=== PATIENT | female | born 1950 | race Caucasian/White ===

== ENCOUNTER 2024-01-02 11:33 | Outpatient (AMB) | payer MEDICARE, MEDICAID, SELFPAY ==
--- NOTE | 2024-01-02 12:00 | A.OFFPC_ITS ---
Vital Signs 01/02/24 12:07 Weight 130 lb BP 100/52 L Blood Pressure Location Rt brachial Position Sitting Respiration 12 Pulse 63 Pulse Source Pulse Oximeter Temp 98.3 F Temp Source Oral Pulse Oximetry (%) 99 Oxygen Delivery Method Room Air Intake Visit Reasons: est care/forgetfulness Intake Note: New patient visit. Community Development Worker Required: Yes Community Development Worker Name: son Allergies No Known Allergies Allergy (Verified 01/02/24 12:02) Tobacco use date assessed: 01/02/24 Fall risk assessment: No Falls in past year Last assessed Fall Risk: 01/02/24 Dental Screening Dental Screen Date: 01/02/24 Did you have a dental visit in the last 12 months?: No Did you have a dental problem in the last 6 months where you did not have access to dental care?: No Was dental information given to patient?: Patient declined (waiting on doctors approval ) HPI HPI Comments History of Present Illness Details This is a 73-year-old female with no significant past medical history presenting to [facility]. She is with her son, Antonio. 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 Antonio interprets. Patient is from [place]. She moved within the past year to [place] where she resided for 4 months. Three months ago she relocated to [place], and she is living with her son and [id number]. There are no prior medical records available. They are working on obtaining the records. Her son tells me that about 3 years ago she was diagnosed with right breast cancer. He says they removed the cancer surgically and put her on a medication, but they subsequently found out that she did not ever have cancer though the details of this are unclear to me. She stopped taking the oral medication about 2 years ago. They do not remember the name of it. They said that the doctor lost his practice and his home and is no longer practicing medicine. She denies breast lumps or pain. Denies family history of breast cancer. Her last mammogram was more than a year ago, and she is agreeable to have this test done. She endorses bilateral knee pain for years. No injury. No swelling. They do not give out on her. It hurts when she is sitting for long period of time and gets up and starts walking. Knees feel stiff sometimes. She does not take medication for this. She endorses urinary frequency. No dysuria, hematuria or incontinence. One of her siblings has type 2 diabetes. She attributes it to her age. She gets up once at night. Patient reports he had a colonoscopy 4 years ago which was normal. They deny family history of colon cancer. Patient says she had high cholesterol in the past, but she has never taken medication for it. One of her sisters had a stroke. Patient denies history of heart attack or stroke. She is a nonsmoker. Her son endorses about 6 months of short term memory losses. He gives several examples. Sometimes when he is eating a meal next to her and finishes he gets up, and she will ask him if he needs to eat even though he just did. She will ask him for the remote, and he will hand it to her, but then she will forget she has it. Sometimes when he tells her he is leaving the house she tries looking for him after he has gone. She does remember details from long ago. She does not drive. Patient says she has not really appreciated the change in her memory. She denies headaches, vision changes, numbness, tingling, weakness, syncope, dizziness or head injuries. There is no known family history of dementia. She denies depression symptoms. PHQ-9 is negative. MMSE score is 21. ROS: Constitutional: No unexplained weight loss, fever, chills, fatigue or night sweats. Eyes: No vision changes, blurry vision, double vision, eye pain, eye redness, eye discharge. ENT: No hearing loss, sneezing, congestion, runny nose or sore throat. Respiratory: No shortness of breath, cough or sputum production. Cardiovascular: No chest pain, chest pressure or chest discomfort. No palpitations or pedal edema. Gastrointestinal: No anorexia, nausea, vomiting or diarrhea. No abdominal pain or blood in stool. Hematologic/Lymphatics: No bleeding or bruising. Skin: No rash or itching. Endocrine: No cold or heat intolerance. No polydipsia. Psychiatric: No depression or anxiety. No SI/HI. Physical exam: Constitutional: Alert, in no distress. Head: Normocephalic. Eyes: Pupils are equal, round and reactive to light. Extraocular muscles intact. Ear, Nose and Throat: Canals clear. TMs normal. Normal nasal mucosa. No nasal discharge. No oral lesions. Neck: Supple, Full range of motion. No lymphadenopathy. No palpable thyroid masses. Respiratory: Clear to auscultation. Cardiovascular: S1 S2 regular. No murmurs. Gastrointestinal: Abdomen soft, non-tender, non-distended. Normal bowel sounds. Genitourinary: No costovertebral angle tenderness. Neurologic:?Alert and oriented x 3, no focal deficits observed, CN 2-12 intact, [id number] normal, sensation equal and symmetric, strength UE and LE 5/5 bilaterally, reflexes equal and symmetric.? Normal gait.? Patient able to heel walk, toe walk and walk heel-to-toe across the floor.? No pronator drift.? Negative Romberg. Skin: No rashes Musculoskeletal: Bilateral knee crepitus, knees nontender, no swelling Extremities: Warm and well perfused. No clubbing, cyanosis or edema. Psychiatric: Normal mood and affect [facility] Medical History (Updated 01/02/24 @ 13:33 by RICO Severino) Urinary frequency Abnormal mammogram of right breast Bilateral knee pain Memory loss Surgical History (Updated 01/02/24 @ 12:23 by RICO Severino) History of tubal ligation Family History (Updated 01/02/24 @ 13:29 by RICO Severino) Brother Cancer Brother Cancer Sister Stroke Diabetes Social History Housing: House Housing Other:: With son and his e-Cigarette/Vaping Use: Never Used Second Hand Smoke Exposure: No service: No Current occupational status: retired Cognitive needs: No Hearing needs: No Vision needs: Yes Questionnaire PHQ-9 Over the last 2 weeks, how often have you been bothered by any of the following problems? 1. Little interest or pleasure in doing things: not at all 2. Feeling down, depressed, or hopeless: not at all 3. Trouble falling or staying asleep, or sleeping too much: not at all 4. Feeling tired or having little energy: not at all 5. Poor appetite or overeating: not at all 6. Feeling bad about yourself - or that you are a failure or have let yourself or your family down: not at all 7. Trouble concentrating on things, such as reading the newspaper or watching television: not at all 8. Moving or speaking so slowly that other people could have noticed. Or the opposite - being so fidgety or restless that you have been moving around a lot more than usual: not at all 9. Thoughts that you would be better off or of hurting yourself in some way: not at all Total score: 0 Source: Developed by Drs. Willie An, Sary Mahmood, Sloan Babin and colleagues, with an educational ruddy from [employer]. Thrive Questionnaire Date Thrive assessed: 12/20/23 I am a: Parent/Caregiver What is your living situation today?: I have a steady place to live Within the past 12 months, did the food you bought not last and you didn't have the money to get more?: Never true Within the past 12 months, did you worry whether your food would run out before you got money to buy more?: Never true Do you have trouble paying for medicines?: No Do you have trouble getting transportation to medical appointments?: No Do you have trouble paying your heating and electricity bill?: No Do you have trouble taking care of your child, family member or friend?: No Do you have trouble with day-to-day activities such as bathing, preparing meals, shopping, managing finances, etc.?: Yes Are you currently unemployed and looking for a job?: I choose not to answer this question Are you interested in more education?: No Please select the resources that you would like help with: None Currently or been in a relationship where the following occur: No concerns reported THRIVE Score: 0 Physical exam (Primary Care) Vital Signs: Last Vital Signs Temp 98.3 F 01/02/24 12:07 Pulse 63 01/02/24 12:07 Resp 12 01/02/24 12:07 BP 100/52 L 01/02/24 12:07 Pulse Ox 99 01/02/24 12:07 Oxygen Delivery Method Room Air 01/02/24 12:07 Tobacco/Smoking Status: Tobacco use Status Tobacco use date assessed 01/02/24 01/02/24 12:09 e-Cigarette/Vaping Use Never Used 01/02/24 12:09 Thrive Assessment: Date of Thrive Assessment Date Thrive assessed 12/20/23 01/02/24 12:09 Currently or been in a relationship where the following occur: No concerns reported Coding Level of Care Code New Pt Level 4 (98118) Complex EM visit Add On G2211 Diagnoses Memory loss R41.3 Urinary frequency R35.0 Chronic pain of both knees M25.561; M25.562; G89.29 Chronicity: chronic Abnormal mammogram of right breast R92.8 Comment Assessment & Plan Assessment & Plan (1) Memory loss: Code(s): R41.3 - Other amnesia Category: Medical Plan: Differential reviewed with the patient and her son. Check screening labs, urine culture, MRI of the brain. Refer to neuropsychiatry. (2) Urinary frequency: Code(s): R35.0 - Frequency of micturition Category: Medical Plan: Chronic. Check UA, culture, A1c. (3) Bilateral knee pain: Code(s): M25.561 - Pain in right knee; M25.562 - Pain in left knee Category: Medical Qualifiers: Chronicity: chronic Qualified Code(s): M25.561 - Pain in right knee; M25.562 - Pain in left knee; G89.29 - Other chronic pain Plan: X-rays ordered. (4) Abnormal mammogram of right breast: Code(s): R92.8 - Other abnormal and inconclusive findings on diagnostic imaging of breast Category: Medical Plan: I explained the importance of getting the medical records from [place] so that I can look into the details of this misdiagnosis of breast cancer. He will also get me the name of the medication she was prescribed. Patient will have a mammogram and bone density test. Plan Follow up in 6 weeks. Orders: Orders XR knee RT 3V Today M25.561 - Pain in right knee, M25.562 - Pain in left knee MM screening mammo BI Today Z12.31 - Encounter for screening mammogram for malignant neoplasm of breast XR DEXA axial skeleton Today N95.9 - Unspecified menopausal and perimenopausal disorder TSH reflex Free T4 Today M25.561 - Pain in right knee, M25.562 - Pain in left knee, R41.3 - Other amnesia, Z98.51 - Tubal ligation status Hemoglobin A1c Today R35.0 - Frequency of micturition, R41.3 - Other amnesia Lipid Panel Today E78.5 - Hyperlipidemia, unspecified, M25.561 - Pain in right knee, M25.562 - Pain in left knee, R41.3 - Other amnesia, Z98.51 - Tubal ligation status Vitamin B12 and Folate Today M25.561 - Pain in right knee, M25.562 - Pain in left knee, R41.3 - Other amnesia, Z98.51 - Tubal ligation status XR knee LT 3V Today M25.561 - Pain in right knee, M25.562 - Pain in left knee MR head/brain wo con Today R41.3 - Other amnesia Syphilis Screen Today M25.561 - Pain in right knee, M25.562 - Pain in left knee, R41.3 - Other amnesia, Z20.2 - Contact with and (suspected) exposure to infections with a predominantly sexual mode of transmission, Z98.51 - Tubal ligation status UA w Microscopic Today M25.561 - Pain in right knee, M25.562 - Pain in left knee, R39.9 - Unspecified symptoms and signs involving the genitourinary system, R41.3 - Other amnesia, Z98.51 - Tubal ligation status Urine Culture Today M25.561 - Pain in right knee, M25.562 - Pain in left knee, R39.9 - Unspecified symptoms and signs involving the genitourinary system, R41.3 - Other amnesia, Z98.51 - Tubal ligation status Complete Blood Count Auto Diff Today M25.561 - Pain in right knee, M25.562 - Pain in left knee, R41.3 - Other amnesia, Z98.51 - Tubal ligation status Comprehensive Met. Panel Today M25.561 - Pain in right knee, M25.562 - Pain in left knee, R41.3 - Other amnesia, Z98.51 - Tubal ligation status Referrals Neuropsychiatry Referral M25.561 - Pain in right knee, M25.562 - Pain in left knee, R41.3 - Other amnesia, R92.8 - Other abnormal and inconclusive findings on diagnostic imaging of breast
[2024-01-02 12:07] VITALS: BP 100/52; PULSE 63; RESP 12; TEMP 36.8; O2SAT 99
== END 2024-01-02 12:52 | disposition home or self-care (01) ==
PROVIDERS: PCP Internal Medicine; Visit Provider Physician Assistant Medical
DX: R41.3 Other amnesia (principal); R35.0 Frequency of micturition; M25.561 Pain in right knee; M25.562 Pain in left knee; G89.29 Other chronic pain; R92.8 Other abnormal and inconclusive findings on diagnostic imaging of breast

== ENCOUNTER → 2024-01-02 11:33 | Outpatient (BNVA) | payer MEDICARE, MEDICAID, SELFPAY | PROVIDERS: PCP Internal Medicine; Visit Provider Physician Assistant Medical | DX: R41.3 Other amnesia (principal); R35.0 Frequency of micturition; M25.561 Pain in right knee; M25.562 Pain in left knee; G89.29 Other chronic pain; R92.8 Other abnormal and inconclusive findings on diagnostic imaging of breast | CPT/HCPCS: 99202 ==

== ENCOUNTER 2024-01-03 09:23 | Outpatient (REF) | payer MEDICARE, MEDICAID, SELFPAY ==
[2024-01-03 10:02] LABS: MANUAL DIFF FLAG NO
[2024-01-03 10:53] LABS: Basophils Percent Auto 0.4 % (0-2); Eosinophils Percent Auto 0.8 % (0-4); Hematocrit 40.6 % (37.0-47.0); Hemoglobin 13.6 g/dl (12.0-16.0); Imm Gran Abs Auto 0.02 X10*3/uL (0.00-0.03); Imm Gran Pct Auto 0.4 % (0.0-0.4); Lymphocytes Percent Auto 37.9 % (20-40); Mean Corpuscular HGB Conc 33.5 g/dl (31.0-35.0); Mean Corpuscular Hemoglobin 30.8 pg (27.0-33.0); Mean Corpuscular Volume 91.9 fL (80.0-98.0); Mean Platelet Volume 10.8 fL (9.4-12.3); Monocytes Absolute Auto 0.4 X10*3/uL (0.1-1.2); Monocytes Percent Auto 7.7 % (2-11); Neutrophils Absolute Auto 2.8 x10*3/uL (2.0-8.3); Neutrophils Percent Auto 52.8 % (45-73); Platelet Count 240 X10*3/uL (160-400); Red Blood Count 4.42 X10*6/uL (4.20-5.50); Red Cell Distribution Width 12.8 % (11.0-16.0); White Blood Count 5.3 X10*3/uL (4.8-10.8)
[2024-01-03 11:06] LABS: Appearance Urine Clear; Color Urine Yellow; Glucose Urine UA Negative (Negative); Leukocyte Esterase Urine Negative (Negative); Nitrite Urine Negative (Negative); PH 5.5 (5.0-9.0); Specific Gravity - Urine >= 1.030 (1.005-1.025); UMIC TRIGGER UA YES; Urine Blood Trace (Negative); Urine Ketones Negative (Negative); Urine Protein Negative (Neg-Trace)
[2024-01-03 11:23] LABS: Alanine Aminotransferase 14 U/L (0-31); Albumin Level 4.1 g/dL (3.5-5.0); Alkaline Phosphatase 85 U/L (39-117); Anion Gap 14 (12-20); Aspartate Amino Transferase 19 U/L (5-31); Bilirubin Total 0.7 mg/dL (0.0-1.0); Blood Urea Nitrogen 17 mg/dL (9-16); Calcium 9.2 mg/dL (8.4-10.2); Carbon Dioxide 27 mmol/L (22-29); Chloride 104 mmol/L (96-108); Cholesterol 305 mg/dL (<200); Estimated Glomerular Filt Rate > 60; Glucose Random 93 mg/dL (60-115); HDL Cholesterol 53 mg/dL (>40); LDL Cholesterol Calculated 219 mg/dL (<100); Potassium 4.2 mmol/L (3.3-5.1); Sodium 141 mmol/L (135-145); Triglycerides 166 mg/dL (<150)
[2024-01-03 11:24] LABS: Bacteria Urine Trace (None Seen); RBC Urine 0-2 /HPF (0-2); WBC Urine 0-5 /HPF (0-5)
[2024-01-03 11:25] LABS: Hyaline Casts Urine 0-2 /LPF (0-2)
[2024-01-03 11:39] LABS: TSH reflex Free T4 1.74 uIU/mL (0.32-4.0)
[2024-01-03 12:17] LABS: Folate 13.3 ng/mL (> or = 4.0); Vitamin B12 325 pg/mL (200-900)
[2024-01-03 12:31] LABS: Estimated Average Glucose 114 mg/dL; Hemoglobin A1C 203.8222 umol/L; Hemoglobin A1c % 5.6 % (<6.0)
[2024-01-05 03:50] LABS: Syphilis Screen Nonreactive (Nonreactive)
== END 2024-01-03 09:24 | disposition home or self-care (01) ==
LOC: HO.XRAY 09:23
PROVIDERS: PCP Internal Medicine; Visit Provider Physician Assistant Medical
DX: M25.561 Pain in right knee (principal); M25.562 Pain in left knee; R41.3 Other amnesia; R35.0 Frequency of micturition; E78.5 Hyperlipidemia, unspecified; Z98.51 Tubal ligation status; Z20.2 Contact with and (suspected) exposure to infections with a predominantly sexual mode of transmission; R39.9 Unspecified symptoms and signs involving the genitourinary system; Z13.1 Encounter for screening for diabetes mellitus
CPT/HCPCS: 36415; 80053; 80061; 81001; 82607; 82746; 83036; 84443; 85025; 86780; 87086

== ENCOUNTER 2024-02-12 13:54 | Outpatient (REF) | payer MEDICARE, MEDICAID, SELFPAY ==
--- NOTE | ~2024-02-12 | MM_ITS ---
EXAMINATION: BONE DENSITOMETRY CLINICAL INDICATION: Unspecified menopausal and perimenopausal disorder. COMPARISON: This is the patient's baseline examination. TECHNIQUE: Using a Drink[employer]iser DXA System (software version: 13.1) manufactured by [employer], dual-energy x-ray absorptiometry was performed of the lumbar spine and left hip. The images are of good technical quality. Summary results are attached. FINDINGS: AP SPINE L1-L4: BMD 1.135 g/cm2, Z-score 1.5, T-score -0.4, normal. LEFT FEMUR, NECK: BMD 0.916 g/cm2, Z-score 1.1, T-score -0.9, normal. LEFT FEMUR, TOTAL: BMD 0.907 g/cm2, Z-score 1.0, T-score -0.8, normal. IDENTIFIED RISK FACTORS: Menopause. HISTORY OF FRACTURE: None listed. MEDICATIONS: None listed. MM/XR DEXA axial skeleton IMPRESSION: 1. DIAGNOSIS: Normal bone density based on the lowest T-score value of -0.9 in the femoral neck applying World Health Organization criteria. 2. 10-YEAR FRACTURE RISK PREDICTION, FRAX: According to the guidelines, FRAX calculation should only be performed on patients in the osteopenia bone density category. Therefore, FRAX was not performed on this patient. 3. Treatment Recommendations: NOF guidelines recommend consideration for treatment in postmenopausal women and men age 50 and older presenting with the following: -A hip or vertebral (clinical or morphometric) fracture. -T-score less than or equal to -2.5 at the femoral neck or spine after appropriate evaluation to exclude secondary causes. -Low bone mass at the hip or spine and a 10-year fracture probability by FRAX of greater than or equal to 3% for hip fracture or greater than or equal to 20% for major osteoporotic fracture based on the [place] adapted WHO algorithm. 4. Other Recommendations: All treatment decisions require clinical judgment and consideration of individual patient factors, including patient preferences, comorbidities, previous drug use, risk factors not captured in the FRAX model (e.g. frailty, falls, vitamin D deficiency, increased bone turnover, interval significant decline in bone density) and possible under or overestimation of fracture risk by FRAX. FUTURE SCAN RECOMMENDATION: People with diagnosed cases of osteoporosis or at high risk for fracture should have regular bone mineral density tests. For patients eligible for Medicare, routine testing is allowed once every 2 years. The testing frequency can be increased to one year for patients who have rapidly progressing disease, those who are receiving or discontinuing medical therapy to restore bone mass, or have additional risk factors. Electronically signed by: Sharifa Martinez MD 02/20/2024 08:58 AM LEÓN MURILLO
--- NOTE | ~2024-02-12 | MM_ITS ---
EXAMINATION: MM SCREENING DIGITAL BREAST TOMOSYNTHESIS, BILATERAL CLINICAL INFORMATION: Screening. Asymptomatic. COMPARISON: Mammography: Comparison is made with available priors TECHNIQUE: Digital breast mammography with tomosynthesis is performed in both the craniocaudal and mediolateral oblique views along with computer-aided detection (CAD). FINDINGS: There are scattered areas of fibroglandular density (ACR BI-RADS breast composition Category b). Post surgical changes in the upper outer right breast. There are no significant masses, abnormal calcifications, or other abnormalities. MM/MM tomosynthesis screening BI IMPRESSION: No mammographic evidence of malignancy. ASSESSMENT: BI-RADS BI-RADS 2 - Benign Findings RECOMMENDATION: Routine annual mammography screening. 1 year F/U This examination should not preclude the clinical evaluation of a suspicious palpable abnormality. This patient's information was entered into a reminder system with a target due date for their next mammogram. Electronically signed by: Ginny Yañez DO 02/21/2024 10:12 AM LEÓN
== END 2024-02-12 13:55 | disposition home or self-care (01) ==
LOC: HO.MAMMO 13:54
PROVIDERS: PCP Physician Assistant Medical; Visit Provider Physician Assistant Medical
DX: Z12.31 Encounter for screening mammogram for malignant neoplasm of breast (principal); Z13.820 Encounter for screening for osteoporosis; Z78.0 Asymptomatic menopausal state
CPT/HCPCS: 77063; 77067; 77080

== ENCOUNTER → 2024-02-12 14:15 | Outpatient (BNV) | payer MEDICARE, MEDICAID, SELFPAY | PROVIDERS: PCP Physician Assistant Medical; Visit Provider Internal Medicine | DX: Z12.31 Encounter for screening mammogram for malignant neoplasm of breast (principal) | CPT/HCPCS: 77063; 77067 ==

== ENCOUNTER 2024-02-20 14:18 | Outpatient (AMB) | payer MEDICARE, MEDICAID, SELFPAY ==
--- NOTE | 2024-02-20 14:21 | A.OFFPC_ITS ---
Vital Signs 02/20/24 14:24 Height 5 ft 2 in Weight 124 lb BMI 22.7 BP 131/62 Blood Pressure Location Lt brachial Position Sitting Respiration 13 Pulse 68 Pulse Source Pulse Oximeter Temp 97.0 F Temp Source Skin Pulse Oximetry (%) 98 Oxygen Delivery Method Room Air Intake Visit Reasons: 30 minutes complex multiple issues Intake Note: follow up on multiole issues Back Seam Stitcher Required: No Allergies No Known Allergies Allergy (Verified 02/20/24 14:23) Tobacco use date assessed: 01/02/24 Dental Screening Dental Screen Date: 01/02/24 HPI HPI Comments History of Present Illness Details This is a 73-year-old female with a past medical history of microhematuria, hypercholesterolemia, bilateral knee pain and memory loss presenting for follow up. She is accompanied by her son Antonio who interprets. 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 Hyperlipidemia-she started atorvastatin 20 mg every evening. Denies side effects. She has been eating a lot of ice cream. She is not exercising. She does not smoke. No history of CAD. Memory loss-stable since last visit. They did not hear back about the neuropsychiatric referral. She did not get the MRI done due to claustrophobia/anxiety though it was attempted. She is willing to retry with premedication. Microscopic hematuria, urinary frequency-she has an appointment coming up with Urology this month. She had her mammogram completed, but it is not resulted yet. Her bone density exam was normal. We reviewed recommended vaccines, and she is going to start by getting the influenza vaccine and pneumonia vaccine at her pharmacy. I have also recommended COVID-19 booster and RSV vaccines. ROS: Constitutional: No unexplained weight loss, fever, chills, fatigue or night sweats. Respiratory: No shortness of breath, cough or sputum production. Cardiovascular: No chest pain Gastrointestinal: No anorexia, nausea, vomiting or diarrhea. No abdominal pain Genitourinary: No dysuria, hematuria, urinary frequency. Neurologic: No headache, dizziness, syncope, unilateral weakness, ataxia, numbness or tingling in the extremities. Psychiatric: No depression or anxiety. Physical exam: Constitutional: Alert, in no distress. Head: Normocephalic. Respiratory: Clear to auscultation. Cardiovascular: S1 S2 regular. No murmurs. Extremities: Warm and well perfused. No clubbing, cyanosis or edema. Psychiatric: Normal mood and affect PFSH Medical History (Updated 01/07/24 @ 14:47 by RICO Severino) Microhematuria Pure hypercholesterolemia Urinary frequency Abnormal mammogram of right breast Bilateral knee pain Memory loss Surgical History (Updated 01/02/24 @ 12:23 by RICO Severino) History of tubal ligation Family History (Updated 01/02/24 @ 13:29 by RICO Severino) Brother Cancer Brother Cancer Sister Stroke Diabetes Social History Housing: House Housing Other:: With son and his e-Cigarette/Vaping Use: Never Used Second Hand Smoke Exposure: No service: No Current occupational status: retired Cognitive needs: No Hearing needs: No Vision needs: Yes Questionnaire PHQ-9 Over the last 2 weeks, how often have you been bothered by any of the following problems? 1. Little interest or pleasure in doing things: not at all 2. Feeling down, depressed, or hopeless: not at all 3. Trouble falling or staying asleep, or sleeping too much: not at all 4. Feeling tired or having little energy: not at all 5. Poor appetite or overeating: not at all 6. Feeling bad about yourself - or that you are a failure or have let yourself or your family down: not at all 7. Trouble concentrating on things, such as reading the newspaper or watching television: not at all 8. Moving or speaking so slowly that other people could have noticed. Or the opposite - being so fidgety or restless that you have been moving around a lot more than usual: not at all 9. Thoughts that you would be better off or of hurting yourself in some way: not at all Total score: 0 [id number] - PHQ-9 Billing: Yes Source: Developed by Drs. Willie An, Sary Mahmood, Sloan Babin and colleagues, with an educational ruddy from [employer]. Thrive Questionnaire Date Thrive assessed: 02/20/24 I am a: Parent/Caregiver What is your living situation today?: I have a steady place to live Within the past 12 months, did the food you bought not last and you didn't have the money to get more?: Never true Within the past 12 months, did you worry whether your food would run out before you got money to buy more?: Never true Do you have trouble paying for medicines?: No Do you have trouble getting transportation to medical appointments?: No Do you have trouble paying your heating and electricity bill?: No Do you have trouble taking care of your child, family member or friend?: No Do you have trouble with day-to-day activities such as bathing, preparing meals, shopping, managing finances, etc.?: Yes Are you currently unemployed and looking for a job?: I choose not to answer this question Are you interested in more education?: No Please select the resources that you would like help with: None Currently or been in a relationship where the following occur: No concerns reported THRIVE Score: 0 AUDIT C Alcohol Use Questionnaire (AUDIT-C) 2. How many drinks containing alcohol do you have on a typical day when you are drinking?: 1 or 2 Total Score: 0 Physical exam (Primary Care) Vital Signs: Last Vital Signs Temp 97.0 F 02/20/24 14:24 Pulse 68 02/20/24 14:24 Resp 13 02/20/24 14:24 BP 131/62 02/20/24 14:24 Pulse Ox 98 02/20/24 14:24 Oxygen Delivery Method Room Air 02/20/24 14:24 BMI result Body Mass Index 22.7 Tobacco/Smoking Status: Tobacco use Status Tobacco use date assessed 01/02/24 02/20/24 14:23 e-Cigarette/Vaping Use Never Used 02/20/24 14:23 PHQ-9: PHQ-9 Score PHQ-9: Total score 0 02/20/24 14:29 Thrive Assessment: Date of Thrive Assessment Date Thrive assessed 02/20/24 02/20/24 14:23 Currently or been in a relationship where the following occur: No concerns reported Coding Level of Care Code Est Pt Level 4 (05288) Complex EM visit Add On G2211 Diagnoses Memory loss R41.3 Microhematuria R31.29 Pure hypercholesterolemia E78.00 Abnormal mammogram of right breast R92.8 Additional Codes PHQ-9 - 16497 - PHQ-9 Billing: Yes ([id number]) Assessment & Plan Assessment & Plan (1) Memory loss: Code(s): R41.3 - Other amnesia Category: Medical Plan: We reviewed her lab results. MRI is pending. Sent Ativan 1 mg to take 30-60 minutes prior to MRI. Advised patient not to drive, operate heavy machinery or drink alcohol the day she takes this medication. Her son will bring her to and from MRI. I will follow up on her neuropsych referral. (2) Microhematuria: Code(s): R31.29 - Other microscopic hematuria Category: Medical Plan: Upcoming appointment with Urology. (3) Pure hypercholesterolemia: Code(s): E78.00 - Pure hypercholesterolemia, unspecified Category: Medical Plan: Continue atorvastatin 20 mg every evening. They will return in 2 weeks for fasting labs. (4) Abnormal mammogram of right breast: Code(s): R92.8 - Other abnormal and inconclusive findings on diagnostic imaging of breast Category: Medical Plan: Refer to prior office visit note. Mammogram results is pending. Plan Follow up in 3 months. Medications: New lorazepam (Ativan) Take 1 tab po 60 minutes prior to MRI. 1 mg PO ONCE 1 tab 0RF anxiety
[2024-02-20 14:24] VITALS: BP 131/62; PULSE 68; RESP 13; TEMP 36.1; O2SAT 98; BMI 22.7
== END 2024-02-20 16:49 | disposition home or self-care (01) ==
PROVIDERS: PCP Internal Medicine; Visit Provider Physician Assistant Medical
DX: R41.3 Other amnesia (principal); R31.29 Other microscopic hematuria; E78.00 Pure hypercholesterolemia, unspecified; R92.8 Other abnormal and inconclusive findings on diagnostic imaging of breast

== ENCOUNTER → 2024-02-20 14:18 | Outpatient (BNVA) | payer MEDICARE, MEDICAID, SELFPAY | PROVIDERS: PCP Internal Medicine; Visit Provider Physician Assistant Medical | DX: R41.3 Other amnesia (principal); R31.29 Other microscopic hematuria; E78.00 Pure hypercholesterolemia, unspecified; R92.8 Other abnormal and inconclusive findings on diagnostic imaging of breast; Z79.899 Other long term (current) drug therapy | CPT/HCPCS: 96127; 99212 ==

== ENCOUNTER 2024-03-05 15:19 | Outpatient (REF) | payer MEDICARE, MEDICAID, SELFPAY ==
[2024-03-05 16:16] LABS: Urine Cytology See Pathology rpt
== END 2024-03-05 15:20 | disposition home or self-care (01) ==
LOC: HO.LNP 15:19
PROVIDERS: PCP Physician Assistant Medical; Visit Provider Nurse Practitioner Family
DX: R31.29 Other microscopic hematuria (principal)
CPT/HCPCS: 81003; 88112; 99202

== ENCOUNTER 2024-03-05 15:19 | Outpatient (AMB) | payer MEDICARE, MEDICAID, SELFPAY ==
--- NOTE | 2024-03-05 15:40 | A.OFFVIS_ITS ---
Intake Visit Reasons: microscopic hematuria Intake Note: New Patient presents for initial visit for Urology Medications: Blood Thinner: Storage Manager Required: Yes Storage Manager Name: LUCIAN TERRAZAS Accompanied by: Unknown Allergies No Known Allergies Allergy (Verified 03/05/24 15:56) Medication List - Last Reconciled 03/05/24 by ISAK Hayes atorvastatin 20 mg PO BEDTIME cyanocobalamin (vitamin B-12) 500 mcg PO DAILY lorazepam (Ativan) 1 mg PO ONCE HPI Comments Details: Mily is a very pleasant 73-year-old Macedonian-speaking female patient of who was accompanied by her son at today's office visit. She has a past medical history of hypercholesteremia, bilateral knee pain, and memory loss. She presents to the office today as a new patient for microscopic hematuria. In discussion with the patient today she reports having followed up with her PCP at which time urinalysis noted microscopic hematuria and recommendations were made for urology referral for further assessment evaluation. When asked she denies any previous smoking history and or workplace chemical exposure. She does report noting urinary frequency however does not find this bothersome. She denies urinary urgency, incontinence, nocturia, hematuria, dysuria, foul smelling urine, changes to urinary stream, flank pain, fever, and or chills.She is happy with her current voiding parameters. In office urinalysis results reviewed with the patient today 1+ microscopic hematuria. We discussed at length potential causes of microscopic hematuria as well as further workup. She otherwise offers no other issues or concerns at this time. [facility] Medical History Microhematuria Pure hypercholesterolemia Urinary frequency Abnormal mammogram of right breast Bilateral knee pain Memory loss Surgical History History of tubal ligation Family History Brother Cancer Brother Cancer Sister Stroke Diabetes Social History Housing: House Housing Other:: With son and his e-Cigarette/Vaping Use: Never Used Second Hand Smoke Exposure: No service: No Current occupational status: retired Cognitive needs: No Hearing needs: No Vision needs: Yes Review of Systems Const All systems reviewed & are unremarkable except as noted in HPI and below Physical Exam Const General: cooperative, healthy appearing, comfortable, no acute distress, well developed, alert and awake Orientation/consciousness: patient oriented x3 Limitations: no limitations HEENT Head: Yes normal to inspection, Yes normocephalic and Yes atraumatic Ears: hearing grossly normal bilaterally Eyes General: appearance normal, both eyes and all related structures Neck Neck: Yes normal visual inspection and Yes trachea midline Chest Chest palpation & inspection: normal inspection of the chest Resp Effort & Inspection: normal respiratory effort and able to speak in complete sentences Cardio Rate: regular rate GI Inspection: Yes normal to inspection General: Yes no CVA tenderness Back/Spine/Pelvis Back: no CVA tenderness Skin General skin exam: no rashes or lesions noted Neuro General: patient oriented x3 Extrem General: Yes normal to inspection Psych Appearance: grossly normal and well kempt Mental Status: mental status grossly normal Speech and movement: Normal speech and movement present and Clear speech present Affect: normal affect Attitude: cooperative Thought process: Normal thought process present Thought content: Normal thought content present Insight: Fair insight present (Psych) Judgement: Fair judgement present (Psych) Results AMB Urinalysis, Automated UA Leukoctes 0 Gato/uL Last Edit by Teri Balbuena on 03/05/24 15:45 UA Nitrite Last Edit by Teri Balbuena on 03/05/24 15:45 UA Urobilinogen 0.2 mg/dL Last Edit by MatthewJZ Clothing and Cosplay Designbernadette Balbuena on 03/05/24 15:45 UA Protein 0 mg/dL Last Edit by Teri Balbuena on 03/05/24 15:45 UA pH 5.5 Last Edit by Teri Balbuena on 03/05/24 15:45 UA Blood 25 Adan/uL Last Edit by Trei Balbuena on 03/05/24 15:45 UA Specific [place] 1.030 Last Edit by Teri Balbuena on 03/05/24 15:45 UA Ketone Last Edit by Teri Balbuena on 03/05/24 15:45 UA Bilirubin 0 mg/dL Last Edit by Teri Balbuena on 03/05/24 15:45 UA Glucose 0 mg/dL Last Edit by Teri Balbuena on 03/05/24 15:45 Results Reviewed Results Reviewed: Laboratory Last Values Urine pH (Auto) 5.5 03/05/24 15:44 Specific [place] (Auto) 1.030 03/05/24 15:44 Urine Protein (Auto) 0 mg/dL 03/05/24 15:44 Glucose (UA)(Auto) 0 mg/dL 03/05/24 15:44 Urine Blood (Auto) 25 Adan/uL 03/05/24 15:44 Urine Bilirubin (Auto) 0 mg/dL 03/05/24 15:44 Urine Urobilinogen (Auto) 0.2 mg/dL 03/05/24 15:44 Leukocyte Esterase (Auto) 0 Gato/uL 03/05/24 15:44 Assessment & Plan Assessment & Plan (1) Microhematuria: Code(s): R31.29 - Other microscopic hematuria Category: Medical Plan In office urinalysis results reviewed with the patient and her son today; as noted above; will send for urine cytology. Will obtain retroperitoneal ultrasound for further assessment evaluation. We discussed at length potential causes of microscopic hematuria as well as further workup. She otherwise denies any bothersome urinary issues or concerns. She reports be happy with current voiding parameters. Follow-up in 3 months with imaging to be completed prior; or sooner with any issues, concerns, and or questions. Orders: Orders AMB Urinalysis Automated Today Z13.9 - Encounter for screening, unspecified Urine Cytology Today R31.29 - Other microscopic hematuria US retroperitoneal comp Today R31.29 - Other microscopic hematuria Patient Instructions: The patient had an opportunity to ask questions regarding the treatment plan. All questions were answered. Physical exam, labs, and imaging were discussed and reviewed in detail. As well as risks, benefits, and discussion of treatment choices. No major barriers to understanding were identified. The patient expressed understanding and agreement with the above treatment plan. The patient was made aware they should contact our office by phone for worsening of their current condition, the appearance of new symptoms, or with any questions or concerns. Compliance is encouraged with any medications and follow up testing that is ordered. It is a privilege to be allowed the opportunity to participate in? your urological care.? Again, if you have any questions or concerns If you have any questions or concerns please do not hesitate to contact me. The office is [phone]. This note is constructed using voice recognition software. While every effort has been made to ensure accuracy artificial breast fabricator errors may have been included. Yours sincerely, ISAK Hayes Coding Level of Care Code New Pt Level 3 (90591) Diagnoses Microhematuria R31.29
== END 2024-03-05 15:53 | disposition home or self-care (01) ==
PROVIDERS: PCP Physician Assistant Medical; Visit Provider Nurse Practitioner Family
DX: Z13.9 Encounter for screening, unspecified (principal); R31.29 Other microscopic hematuria
CPT/HCPCS: 99203

== ENCOUNTER 2024-03-19 09:58 | Outpatient (AMB) | payer MEDICARE, MEDICAID, SELFPAY ==
--- NOTE | 2024-03-19 10:00 | MHC.PC.OV ---
Vital Signs 03/19/24 10:03 Height 5 ft 2 in Weight 123 lb BMI 22.5 BP 104/66 Blood Pressure Location Rt brachial Position Sitting Respiration 12 Pulse 52 Pulse Source Pulse Oximeter Pulse Oximetry (%) 97 Oxygen Delivery Method Room Air Intake Visit Reasons: memory loss Intake Note: Patient complaining of havent been feeling well Rigging Foreman Required: No Allergies No Known Allergies Allergy (Verified 03/19/24 10:00) Tobacco use date assessed: 01/02/24 Dental Screening Dental Screen Date: 01/02/24 HPI HPI Comments History of Present Illness Details This is a 73-year-old female with a past medical history of microhematuria, hypercholesterolemia, bilateral knee pain and memory loss presenting for follow up. She is accompanied by her son Antonio who interprets. They declined the video interpreter for the deaf. Hyperlipidemia-she started atorvastatin 20 mg every evening. Denies side effects. Antonio said she stopped having ice cream. She is not exercising. She does not smoke. No history of CAD. Memory loss-endorses increased anxiety and agitation recently. Cognitive decline stable. They did not hear back about the neuropsychiatric referral, and I advised them it may be a wait to get scheduled, but the referral has been [facility]. She did not get the MRI done due to claustrophobia/anxiety initially though it was attempted. I prescribed premedication, and they have it scheduled this Saturday, but Antonio would like to reschedule it so that she can have an open MRI. She is sleeping and eating well. She is still able to perform ADLs like dressing herself and bathing. Patient denies depression, SI and HI. Antonio has looked into senior center activities, but she is not interested in this. She does really enjoy visiting with her aunt who lives in an elderly living community. There are a lot of Malagasy speakers there, and they have applied for an apartment for [employer]. Microscopic hematuria, urinary frequency-followed by urology. Her mammogram and bone density exams were normal. ROS: Constitutional: No unexplained weight loss, fever, chills, fatigue or night sweats. Respiratory: No shortness of breath, cough or sputum production. Cardiovascular: No chest pain Gastrointestinal: No anorexia, nausea, vomiting or diarrhea. No abdominal pain Genitourinary: No dysuria, hematuria, urinary frequency. Neurologic: No headache, dizziness, syncope, unilateral weakness, ataxia, numbness or tingling in the extremities. Psychiatric: No depression or anxiety. Physical exam: Constitutional: Alert, in no distress. Head: Normocephalic. Respiratory: Clear to auscultation. Cardiovascular: S1 S2 regular. No murmurs. Extremities: Warm and well perfused. No clubbing, cyanosis or edema. Psychiatric: Normal mood and affect [facility] Medical History (Updated 03/19/24 @ 10:30 by RICO Severino) Cognitive decline Microhematuria Pure hypercholesterolemia Urinary frequency Abnormal mammogram of right breast Bilateral knee pain Memory loss Surgical History History of tubal ligation Family History Brother Cancer Brother Cancer Sister Stroke Diabetes Social History Housing: House Housing Other:: With son and his e-Cigarette/Vaping Use: Never Used Second Hand Smoke Exposure: No service: No Current occupational status: retired Cognitive needs: No Hearing needs: No Vision needs: Yes Questionnaire PHQ-9 Over the last 2 weeks, how often have you been bothered by any of the following problems? 57106 - PHQ-9 Billing: Patient declined-do not bill Source: Developed by Drs. Willie An, Sary Mahmood, Sloan Babin and colleagues, with an educational ruddy from [employer]. Thrive Questionnaire Date Thrive assessed: 03/19/24 I am a: Patient What is your living situation today?: I have a steady place to live Within the past 12 months, did the food you bought not last and you didn't have the money to get more?: Never true Within the past 12 months, did you worry whether your food would run out before you got money to buy more?: Never true Do you have trouble paying for medicines?: I choose not to answer this question Do you have trouble getting transportation to medical appointments?: No Do you have trouble paying your heating and electricity bill?: No Do you have trouble taking care of your child, family member or friend?: No Do you have trouble with day-to-day activities such as bathing, preparing meals, shopping, managing finances, etc.?: Yes Are you currently unemployed and looking for a job?: No Are you interested in more education?: I choose not to answer this question Please select the resources that you would like help with: None Currently or been in a relationship where the following occur: I choose not to answer THRIVE Score: 0 AUDIT C Alcohol Use Questionnaire (AUDIT-C) 1. How often do you have a drink containing alcohol?: Never Total Score: 0 FILIPPO-7 AMB Questionnaire FILIPPO-7 Date FILIPPO - 7 assessed: 03/19/24 Feeling nervous, anxious, or on edge: 0 = Not at all Not being able to stop or control worryin = Not at all Worrying too much about different things: 1 = Several days Trouble relaxin = Several days Being so restless that it is hard to sit still: 0 = Not at all Becoming easily annoyed or irritable: 2 = More than half the days Feeling afraid as if something awful might happen: 1 = Several days Total FILIPPO-7 score (0-4 normal; 5-9 mild; 10-14 moderate; 15-21 severe): 5 Source: Developed by Drs. Willie An, Sary Mahmood, Sloan Babin and colleagues, with an educational ruddy from [employer]. FILIPPO-7 Assessment Billing FILIPPO-7 Assessment Tool: FILIPPO-7 Assessment 26734 Physical exam (Primary Care) Vital Signs: Last Vital Signs Pulse 52 03/19/24 10:03 Resp 12 03/19/24 10:03 BP 104/66 03/19/24 10:03 Pulse Ox 97 03/19/24 10:03 Oxygen Delivery Method Room Air 03/19/24 10:03 BMI result Body Mass Index 22.5 Tobacco/Smoking Status: Tobacco use Status Tobacco use date assessed 01/02/24 03/19/24 10:04 e-Cigarette/Vaping Use Never Used 03/19/24 10:04 Thrive Assessment: Date of Thrive Assessment Date Thrive assessed 03/19/24 03/19/24 10:04 Currently or been in a relationship where the following occur: I choose not to answer Coding Level of Care Code Est Pt Level 4 (38753) Complex EM visit Add On G2211 Diagnoses Memory loss R41.3 Microhematuria R31.29 Pure hypercholesterolemia E78.00 Additional Codes FILIPPO-7 Assessment Billing - FILIPPO-7 Assessment Tool: FILIPPO-7 Assessment 77804 ([id number]) Assessment & Plan Assessment & Plan (1) Memory loss: Code(s): R41.3 - Other amnesia Category: Medical Plan: Continue B12. We will recheck labs today owing to some increased agitation and anxiety. We will rule out UTI. They will cancel MRI appointment scheduled this week, and I will send the MRI order to [facility] for open [facility]. She has Ativan 1 mg to take 30-60 minutes prior to MRI. Advised patient not to drive, operate heavy machinery or drink alcohol the day she takes this medication. Her son will bring her to and from MRI. Patient referred to Neurology. Discuss increased stress and agitation. Recommended trial of low-dose SSRI, but she declines for the time being. Declines referral to psychologist. (2) Microhematuria: Code(s): R31.29 - Other microscopic hematuria Category: Medical Plan: Followed by urology. (3) Pure hypercholesterolemia: Code(s): E78.00 - Pure hypercholesterolemia, unspecified Category: Medical Plan: Continue atorvastatin 20 mg every evening. Orders: Orders Urine Culture 03/19/24 R39.9 - Unspecified symptoms and signs involving the genitourinary system, R41.3 - Other amnesia Basic Metabolic Panel 03/19/24 R41.3 - Other amnesia UA w Microscopic 03/19/24 R39.9 - Unspecified symptoms and signs involving the genitourinary system, R41.3 - Other amnesia Complete Blood Count no Diff 03/19/24 R41.3 - Other amnesia TSH reflex Free T4 03/19/24 R41.3 - Other amnesia Vitamin B12 03/19/24 Z91.89 - Other specified personal risk factors, not elsewhere classified Referrals Neurology Referral R41.89 - Other symptoms and signs involving cognitive functions and awareness
[2024-03-19 10:03] VITALS: BP 104/66; PULSE 52; RESP 12; O2SAT 97; BMI 22.5
== END 2024-03-19 10:37 | disposition home or self-care (01) ==
PROVIDERS: PCP Physician Assistant Medical; Visit Provider Physician Assistant Medical
DX: R41.3 Other amnesia (principal); R31.29 Other microscopic hematuria; E78.00 Pure hypercholesterolemia, unspecified

== ENCOUNTER 2024-03-19 11:11 | Outpatient (REF) | payer MEDICARE, MEDICAID, SELFPAY ==
[2024-03-19 14:13] LABS: Hematocrit 41.2 % (37.0-47.0); Hemoglobin 13.6 g/dl (12.0-16.0); Mean Corpuscular Hemoglobin 30.4 pg (27.0-33.0); Mean Platelet Volume 11.3 fL (9.4-12.3); Platelet Count 234 X10*3/uL (160-400); Red Blood Count 4.48 X10*6/uL (4.20-5.50); Red Cell Distribution Width 13.2 % (11.0-16.0); White Blood Count 4.8 X10*3/uL (4.8-10.8)
[2024-03-19 14:15] LABS: Appearance Urine Turbid; Color Urine Yellow; Glucose Urine UA Negative (Negative); Leukocyte Esterase Urine Trace (Negative); Nitrite Urine Negative (Negative); PH 5.5 (5.0-9.0); UMIC TRIGGER UA YES; Urine Blood Trace (Negative); Urine Ketones Negative (Negative); Urine Protein Negative (Neg-Trace)
[2024-03-19 14:18] LABS: Bacteria Urine None Seen (None Seen); Hyaline Casts Urine 0-2 /LPF (0-2); RBC Urine 0-2 /HPF (0-2); WBC Urine 0-5 /HPF (0-5)
[2024-03-19 14:27] LABS: Alanine Aminotransferase 11 U/L (0-31); Anion Gap 13 (12-20); Aspartate Amino Transferase 25 U/L (5-31); Blood Urea Nitrogen 18 mg/dL (9-16); Calcium 9.3 mg/dL (8.4-10.2); Carbon Dioxide 25 mmol/L (22-29); Chloride 108 mmol/L (96-108); Cholesterol 285 mg/dL (<200); Estimated Glomerular Filt Rate > 60; Glucose Random 90 mg/dL (60-115); HDL Cholesterol 50 mg/dL (>40); LDL Cholesterol Calculated 198 mg/dL (<100); Potassium 4.1 mmol/L (3.3-5.1); Sodium 142 mmol/L (135-145); Triglycerides 187 mg/dL (<150)
[2024-03-19 14:48] LABS: Vitamin B12 319 pg/mL (200-900)
== END 2024-03-19 11:12 | disposition home or self-care (01) ==
LOC: HO.WFDLDS 11:11
PROVIDERS: Visit Provider Physician Assistant Medical
DX: E78.00 Pure hypercholesterolemia, unspecified (principal); E78.5 Hyperlipidemia, unspecified; R39.9 Unspecified symptoms and signs involving the genitourinary system; R41.3 Other amnesia; Z91.89 Other specified personal risk factors, not elsewhere classified; R31.29 Other microscopic hematuria
CPT/HCPCS: 36415; 80048; 80061; 81001; 82607; 84443; 84450; 84460; 85027; 87086; 96127; 99212

== ENCOUNTER 2024-05-25 14:27 | Outpatient (AMB) | payer MEDICARE, MEDICAID, SELFPAY ==
--- NOTE | 2024-05-25 14:33 | A.OFFPC_ITS ---
Vital Signs 05/25/24 14:42 Height 5 ft 2 in Weight 123 lb BMI 22.5 BP 100/58 L Blood Pressure Location Rt brachial Position Sitting Pulse 74 Pulse Source Pulse Oximeter Pulse Oximetry (%) 97 Oxygen Delivery Method Room Air Intake Visit Reasons: follow up 30 min animal physiology teacher Instructor Watch Assembly Required: Yes Instructor Watch Assembly Language: Clerical Proofreader Name: Payton([id number]) Allergies No Known Allergies Allergy (Verified 05/25/24 14:44) Tobacco use date assessed: 05/25/24 Fall risk assessment: No Falls in past year Last assessed Fall Risk: 05/25/24 Dental Screening Dental Screen Date: 05/25/24 Did you have a dental visit in the last 12 months?: Yes Did you have a dental problem in the last 6 months where you did not have access to dental care?: No Was dental information given to patient?: Patient has dentist HPI HPI Comments History of Present Illness Details This is a 73-year-old female with a past medical history of microhematuria, hypercholesterolemia, bilateral knee pain and memory loss presenting for follow up. She is accompanied by her daughter in law who is taking over coordinating her appointments. Ukrainian video animal physiology teacher used. Hyperlipidemia-she started atorvastatin 20 mg every evening. Denies side effects. Antonio said she stopped having ice cream. She is not exercising. She does not smoke. No history of CAD. Patient reports she stopped taking it a month ago because she ran out. Last LDL was elevated. Denies CP or SOB. Nonsmoker. Memory loss-chronic. Daugher in law notes difficulty sleeping and some agitation- stable from last visit. They did not hear back about the neuropsychia tric referral, and I advised them it may be a wait to get scheduled, but the referral has been sent to [facility]. She had a normal MRI of the brain in March. Her appetite is good. She is still able to perform ADLs like dressing herself and bathing. Patient denies depression, SI and HI. Her son looked into senior center activities, but she is not interested in this. She does really enjoy visiting with her aunt who lives in an elderly living community. There are a lot of Ukrainian speakers there, and they have applied for an apartment for Mily. Microscopic hematuria, urinary frequency-followed by urology. Her mammogram and bone density exams were normal. Her knees are still bothering her. She isn't sure when she had her last colonoscopy, but her daughter in law says they can get the record of this. It was in [place]. ROS: Constitutional: No unexplained weight loss, fever, chills, fatigue or night sweats. Respiratory: No shortness of breath, cough or sputum production. Cardiovascular: No chest pain Gastrointestinal: No anorexia, nausea, vomiting or diarrhea. No abdominal pain Genitourinary: No dysuria, hematuria, urinary frequency. Neurologic: No headache, dizziness, syncope, unilateral weakness, ataxia, numbness or tingling in the extremities. Psychiatric: No depression or anxiety. Physical exam: Constitutional: Alert, in no distress. Head: Normocephalic. Respiratory: Clear to auscultation. Cardiovascular: S1 S2 regular. No murmurs. Extremities: Warm and well perfused. No clubbing, cyanosis or edema. Psychiatric: Normal mood and affect [facility] Medical History Cognitive decline Microhematuria Pure hypercholesterolemia Urinary frequency Abnormal mammogram of right breast Bilateral knee pain Memory loss Surgical History History of tubal ligation Family History Brother Cancer Brother Cancer Sister Stroke Diabetes Social History Housing: House Housing Other:: With son and his Patient Tobacco Use Status: Never used Tobacco e-Cigarette/Vaping Use: Never Used Second Hand Smoke Exposure: No service: No Current occupational status: retired Cognitive needs: No Hearing needs: No Vision needs: Yes Questionnaire PHQ-9 Over the last 2 weeks, how often have you been bothered by any of the following problems? 91353 - PHQ-9 Billing: Patient declined-do not bill Source: Developed by Drs. Willie An, Sary Mahmood, Sloan Babin and colleagues, with an educational ruddy from [employer]. Thrive Questionnaire Date Thrive assessed: 03/19/24 I am a: Patient What is your living situation today?: I have a steady place to live Within the past 12 months, did the food you bought not last and you didn't have the money to get more?: Never true Within the past 12 months, did you worry whether your food would run out before you got money to buy more?: Never true Do you have trouble paying for medicines?: I choose not to answer this question Do you have trouble getting transportation to medical appointments?: No Do you have trouble paying your heating and electricity bill?: No Do you have trouble taking care of your child, family member or friend?: No Do you have trouble with day-to-day activities such as bathing, preparing meals, shopping, managing finances, etc.?: Yes Are you currently unemployed and looking for a job?: No Are you interested in more education?: I choose not to answer this question Please select the resources that you would like help with: None Currently or been in a relationship where the following occur: I choose not to answer THRIVE Score: 0 AUDIT C Alcohol Use Questionnaire (AUDIT-C) 1. How often do you have a drink containing alcohol?: Never 3. How often do you have six or more drinks on one occasion?: Never Total Score: 0 FILIPPO-7 AMB Questionnaire FILIPPO-7 Date FILIPPO - 7 assessed: 03/19/24 Feeling nervous, anxious, or on edge: 0 = Not at all Not being able to stop or control worryin = Not at all Worrying too much about different things: 1 = Several days Trouble relaxin = Several days Being so restless that it is hard to sit still: 0 = Not at all Becoming easily annoyed or irritable: 2 = More than half the days Feeling afraid as if something awful might happen: 1 = Several days Total FILIPPO-7 score (0-4 normal; 5-9 mild; 10-14 moderate; 15-21 severe): 5 Source: Developed by Drs. Willie An, Sary Mahmood, Sloan Babin and colleagues, with an educational ruddy from [employer]. FILIPPO-7 Assessment Billing FILIPPO-7 Assessment Tool: FILIPPO-7 Assessment 32845 Physical exam (Primary Care) Vital Signs: Last Vital Signs Pulse 74 05/25/24 14:42 BP 100/58 L 05/25/24 14:42 Pulse Ox 97 05/25/24 14:42 Oxygen Delivery Method Room Air 05/25/24 14:42 BMI result Body Mass Index 22.5 Tobacco/Smoking Status: Tobacco use Status Tobacco use date assessed 05/25/24 05/25/24 14:34 Patient Tobacco Use Status Never used Tobacco 05/25/24 14:34 e-Cigarette/Vaping Use Never Used 05/25/24 14:33 Thrive Assessment: Date of Thrive Assessment Date Thrive assessed 03/19/24 05/25/24 14:33 Currently or been in a relationship where the following occur: I choose not to answer Coding Level of Care Code Est Pt Level 4 (51425) Complex EM visit Add On G2211 Diagnoses Memory loss R41.3 Microhematuria R31.29 Pure hypercholesterolemia E78.00 Chronic pain of both knees M25.561; M25.562; G89.29 Chronicity: chronic Additional Codes FILIPPO-7 Assessment Billing - FILIPPO-7 Assessment Tool: FILIPPO-7 Assessment 09938 ([id number]) Assessment & Plan Assessment & Plan (1) Memory loss: Code(s): R41.3 - Other amnesia Category: Medical Plan: She has a consult with Dr. Lester in August. She has been referred for neuropsych testing. Continue B12. Add melatonin 3 mg nightly as needed for sleep. Recommended trial of low-dose SSRI, but she declines. (2) Microhematuria: Code(s): R31.29 - Other microscopic hematuria Category: Medical Plan: Followed by urology. (3) Pure hypercholesterolemia: Code(s): E78.00 - Pure hypercholesterolemia, unspecified Category: Medical Plan: Restart atorvastatin 20 mg every evening. Check labs in 6 weeks. Follow low cholesterol diet. (4) Bilateral knee pain: Code(s): M25.561 - Pain in right knee; M25.562 - Pain in left knee Category: Medical Qualifiers: Chronicity: chronic Qualified Code(s): M25.561 - Pain in right knee; M25.562 - Pain in left knee; G89.29 - Other chronic pain Plan: She will have xrays done at [facility]. Plan Follow up in 8 wees. Orders: Orders Lipid Panel 7 Weeks E78.5 - Hyperlipidemia, unspecified Vitamin B12 7 Weeks Z91.89 - Other specified personal risk factors, not elsewhere classified Medications: New melatonin 3 mg PO BEDTIME PRN 90 tabs 1RF sleep Refilled cyanocobalamin (vitamin B-12) 500 mcg PO DAILY 90 tabs 1RF atorvastatin 20 mg PO BEDTIME 90 tabs 0RF
[2024-05-25 14:42] VITALS: BP 100/58; PULSE 74; O2SAT 97; BMI 22.5
== END 2024-05-25 15:29 | disposition home or self-care (01) ==
PROVIDERS: PCP Physician Assistant Medical; Visit Provider Physician Assistant Medical
DX: R41.3 Other amnesia (principal); R31.29 Other microscopic hematuria; E78.00 Pure hypercholesterolemia, unspecified; M25.561 Pain in right knee; M25.562 Pain in left knee; G89.29 Other chronic pain

== ENCOUNTER → 2024-05-25 14:27 | Outpatient (BNVA) | payer MEDICARE, MEDICAID, SELFPAY | PROVIDERS: PCP Physician Assistant Medical; Visit Provider Physician Assistant Medical | DX: E78.5 Hyperlipidemia, unspecified (principal); R41.3 Other amnesia; R31.29 Other microscopic hematuria; E78.00 Pure hypercholesterolemia, unspecified; M25.561 Pain in right knee; M25.562 Pain in left knee; G89.29 Other chronic pain; Z91.89 Other specified personal risk factors, not elsewhere classified | CPT/HCPCS: 96127; 99212 ==

== ENCOUNTER 2024-06-04 11:16 | Outpatient (REF) | payer MEDICARE, MEDICAID, SELFPAY ==
--- NOTE | ~2024-06-04 | US_ITS ---
EXAMINATION: US KIDNEY BILATERAL HISTORY: R31.29 - Other microscopic hematuria TECHNIQUE: Real-time grayscale ultrasound imaging of the kidneys was performed and images were reviewed. COMPARISON: There are no prior studies for comparison. FINDINGS: Right kidney: The right kidney measures 10.3 x 5.5 x 4.7 cm. Renal parenchymal echotexture and thickness are normal. There is a 3.6 x 3.6 x 3.9 cm simple cyst in the interpolar region and a 3.0 x 2.8 x 3.1 cm septated cyst at the lower pole. No solid mass is identified. There is no hydronephrosis or renal calculi. Left Kidney: The left kidney measures 11.0 x 5.1 x 4.7 cm. Renal parenchymal echotexture and thickness are normal. There is a 7 x 6 x 8 mm cyst at the lower pole. There is no hydronephrosis or renal calculi. US/US renal BI IMPRESSION: Bilateral renal cysts as described. Otherwise unremarkable renal ultrasound. Electronically signed by: Willie Mitchell MD 06/04/2024 12:28 PM EDT
== END 2024-06-04 11:17 | disposition home or self-care (01) ==
LOC: HO.US 11:16
PROVIDERS: PCP Physician Assistant Medical; Visit Provider Nurse Practitioner Family
DX: R31.29 Other microscopic hematuria (principal)
CPT/HCPCS: 76775

== ENCOUNTER → 2024-06-04 11:18 | Outpatient (BNV) | payer MEDICARE, MEDICAID, SELFPAY | PROVIDERS: PCP Physician Assistant Medical; Visit Provider Radiology Diagnostic Radiology | DX: N28.1 Cyst of kidney, acquired (principal) | CPT/HCPCS: 76775 ==

== ENCOUNTER 2024-09-10 14:10 | Outpatient (AMB) | payer MEDICARE, MEDICAID, SELFPAY ==
--- NOTE | 2024-09-10 14:12 | A.OFFVIS_ITS ---
Vital Signs 09/10/24 14:13 Height 5 ft 2 in Weight 121 lb BMI 22.1 BP 120/70 Blood Pressure Location Rt brachial Position Sitting Intake Visit Reasons: INP-Cognitive Intake Note: Patient referred in house for cognitive decline. Allergies No Known Allergies Allergy (Verified 09/10/24 14:17) Medication List - Last Reconciled 09/10/24 by Cande Lester MD atorvastatin 20 mg PO BEDTIME cyanocobalamin (vitamin B-12) 500 mcg PO DAILY melatonin 3 mg PO BEDTIME PRN HPI Comments Details: 73y/o speaking female comes for evaluation of memory issues.she is accompanied by her son with whom she lives. she moved form [place] 6 mths ago . Her short term memory issues started 2 years ago and has slowly worsened. Now she is very anxious, repeats herself often, wanders at night, irritable and can become aggressive at times, she threatened to self harm- jump from window , delusional - believes that [employer] calls her to report stolen money , verbally abusive, paranoid that she loses things, misplaces and hides things , spends day watching TV. she needs supervision with ADLS. [facility] Medical History (Updated 09/10/24 @ 14:56 by Cande Lester MD) Alzheimer's dementia Cognitive decline Microhematuria Pure hypercholesterolemia Urinary frequency Abnormal mammogram of right breast Bilateral knee pain Memory loss Surgical History History of tubal ligation Family History Brother Cancer Brother Cancer Sister Stroke Diabetes Social History Housing: House Housing Other:: With son and his Patient Tobacco Use Status: Never used Tobacco e-Cigarette/Vaping Use: Never Used Second Hand Smoke Exposure: No service: No Current occupational status: retired Cognitive needs: No Hearing needs: No Vision needs: Yes Physical Exam Vital Signs: Last Vital Signs BP 120/70 09/10/24 14:13 BMI result Body Mass Index 22.1 Const General: healthy appearing, comfortable, alert and Physically active Nutritional Appearance: average body habitus Orientation/consciousness: oriented to person and oriented to place Eyes Pupils: Equal, round and reactive pupils present Neuro Other: she went to school upto 3 rd grade General: oriented to person, oriented to place, gait normal, tone normal, moves all extremities and no focal motor deficits Cranial nerves: Yes Equal, round and reactive pupils present, Yes Bilaterally intact EOM present, Yes Nystagmus not present, Yes Normal facial strength present, Yes Midline tongue present, Yes Symmetric palate elevation present and Yes Ability to bilaterally elevate shoulders present Cognition (Neuro): abnormal cognition Gait exam (Neuro): gait abnormal Motor exam (neuro): 5/5 motor strength present throughout and Normal motor muscle tone present throughout Deep tendon reflexes (DTR's): Right triceps reflex intensity grade: 2+, Left triceps reflex intensity grade: 2+, Rt Biceps (C5, C6): 2+, Left biceps reflex intensity grade: 2+, Right brachioradialis reflex intensity grade: 2+, Left brachioradialis reflex intensity grade: 2+, Right patellar reflex intensity grade: 2+ and Left patellar reflex intensity grade: 2+ Coordination: [id number] test normal Orientation What is the (year) (season) (date) (day) (month)?: season Where are we (state) (county) (town or city) (hospital) (floor)?: state, town or city and hospital/clinic Registration Name of 3 unrelated objects clearly and slowly, then ask patient to repeat all 3 of them. (1st repeat determines score. Make sure they can repeat all three): object 1, object 2 and object 3 Attention & Calculation (CHOOSE ONE) Spell WORLD backwards (DLROW): 2 letters Recall Ask patient to repeat the 3 items from question #3.: object 1, object 2 and object 3 Language Show patient a wristwatch & ask what it is. Repeat for pencil.: watch and pencil Ask the patient to repeat the phrase 'No ifs, ands, or buts' after you.: correct Ask the patient to 'take a piece of paper with their right hand' 'fold paper in half' 'place paper on floor': take paper in right hand, fold paper in half and place paper on floor Give patient a blank piece of paper & ask to write a sentence. Score if it contains a noun & verb.: sentence contains subject and verb Score Score: 19 Assessment & Plan Assessment & Plan (1) Alzheimer's dementia: Code(s): G30.9 - Alzheimer's disease, unspecified; F02.80 - Dementia in other diseases classified elsewhere, unspecified severity, without behavioral disturbance, psychotic disturbance, mood disturbance, and anxiety Category: Medical Qualifiers: Alzheimer's disease onset: late onset Dementia severity: moderate Dementia behavioral or psychological symptom: with other behavioral disturbance Qualified Code(s): G30.1 - Alzheimer's disease with late onset; F02.B18 - Dementia in other diseases classified elsewhere, moderate, with other behavioral disturbance Plan I reviewed her MRI brain and labs I will trial her on donepezil 10 mg qd and quetiapine 25 mg qhs Geripsych referral Family has contacted senior services Medications: New donepezil 1/2 tab qd for 4 weeks and then 1 tab qd 10 mg PO DAILY 30 tabs 6RF quetiapine 25 mg PO BEDTIME 30 tabs 6RF Coding Level of Care Code New Pt Level 4 (86836) Complex EM visit Add On G2211 Diagnoses Moderate late onset Alzheimer's dementia with other behavioral disturbance G30.1; F02.B18 Alzheimer's disease onset: late onset Dementia severity: moderate Dementia behavioral or psychological symptom: with other behavioral disturbance
[2024-09-10 14:13] VITALS: BP 120/70; BMI 22.1
== END 2024-09-10 15:21 | disposition home or self-care (01) ==
LOC: HO.HSMS 14:11
PROVIDERS: PCP Physician Assistant Medical; Visit Provider Psychiatry & Neurology Neurology
DX: G30.1 Alzheimer's disease with late onset (principal); F02.B18 Dementia in other diseases classified elsewhere, moderate, with other behavioral disturbance
CPT/HCPCS: 99204; G2211

== ENCOUNTER 2024-09-10 14:10 | Outpatient (REF) | payer OTHER, SELFPAY ==
[2024-09-10 18:09] LABS: Vitamin B12 599 pg/mL (200-900)
[2024-09-10 18:23] LABS: Cholesterol 238 mg/dL (<200); HDL Cholesterol 48 mg/dL (>40); LDL Cholesterol Calculated 133 mg/dL (<100); Triglycerides 286 mg/dL (<150)
[2024-09-15 04:43] LABS: Quantiferon TB Gold Plus 1 NEGATIVE (NEGATIVE); TB Test (QFT) Nil 0.03 IU/mL; TB Test (QFT) Plus TB1 -Nil 0.32 IU/mL
== END 2024-09-10 14:11 | disposition home or self-care (01) ==
LOC: HO.HKASLDS 14:10
PROVIDERS: PCP Physician Assistant Medical; Visit Provider Psychiatry & Neurology Neurology
DX: Z11.1 Encounter for screening for respiratory tuberculosis (principal); G30.1 Alzheimer's disease with late onset; F02.B18 Dementia in other diseases classified elsewhere, moderate, with other behavioral disturbance; E78.5 Hyperlipidemia, unspecified; Z91.89 Other specified personal risk factors, not elsewhere classified
CPT/HCPCS: 36415; 80061; 82607; 86480; 99202

== ENCOUNTER 2024-12-03 10:48 | Outpatient (AMB) | payer OTHER, SELFPAY ==
--- NOTE | 2024-12-03 10:52 | MHC.PC.OV ---
Vital Signs 12/03/24 11:01 Height 5 ft 2 in Weight 120 lb 8 oz BMI 22.0 BP 118/72 Blood Pressure Location Lt brachial Position Sitting Respiration 12 Pulse 62 Pulse Source Pulse Oximeter Temp 97.7 F Temp Source Temporal Artery Scan Pulse Oximetry (%) 97 Oxygen Delivery Method Room Air Intake Visit Reasons: Reschedule Annual PE Intake Note: Mily presents in the office today for her annual physical. Allergies No Known Allergies Allergy (Verified 12/03/24 10:59) Medication List - Last Reconciled 12/04/24 by RICO Severino atorvastatin 20 mg PO BEDTIME cyanocobalamin (vitamin B-12) 500 mcg PO DAILY donepezil 10 mg PO DAILY Grab bar As directed melatonin 3 mg PO BEDTIME PRN miscellaneous medical supply as directed; quetiapine 25 mg PO BEDTIME Tobacco use date assessed: 12/03/24 Fall risk assessment: No Falls in past year Last assessed Fall Risk: 12/03/24 Dental Screening Dental Screen Date: 12/03/24 Did you have a dental visit in the last 12 months?: No Did you have a dental problem in the last 6 months where you did not have access to dental care?: No Was dental information given to patient?: Patient declined HPI HPI Comments History of Present Illness Details This is a 73-year-old female with a past medical history of microhematuria, hypercholesterolemia, bilateral knee pain and Alzheimer's dementia presenting for follow up. Declined video licensed mortgage loan officer. Her son Mak interprets. He also provide some of the history. Hyperlipidemia-he says that she is compliant with atorvastatin 20 mg nightly. Denies side effects. She is not exercising. She does not smoke. No history of CAD. Alzheimer's dementia-followed by Dr. Lester. She is on Seroquel for agitation and also benazepril. She uses melatonin at night for sleep. Microscopic hematuria, urinary frequency-followed by urology. She is overdue to follow up. I referred her to schedule the follow up. Her mammogram and bone density exams were normal. As you recall there was a questionable history of right breast cancer that her family told me about. The details were very unclear. Her son says that she was initially told she had breast cancer and treated for this however they subsequently found out that she did not have cancer and there may have been an issue with the physician treating her in [place]. They were unable to obtain medical records. She will continue annual mammography. They are unsure when she last had a colonoscopy, but there is concern about the patient being able to do the prep because she frequently eats and snacks without telling her family, and her son has concerns about her memory and going under sedation. Denies bleeding, constipation, abdominal pain, diarrhea and weight loss. Cologuard ordered. She has a small left tympanic membrane perforation on the left side. She reports this is from when she was a little girl and had a severe infection. She had denies pain or hearing loss. Vaccine recommendations were reviewed, and they will follow up with the pharmacy for them. Referred for eye exam. Declines AUTOMATION TENDER referral. ROS: Constitutional: No unexplained weight loss, fever, chills or night sweats. +Fatigue. Eyes: No vision changes, blurry vision, double vision, eye pain, eye redness, eye discharge. ENT: No hearing loss, sneezing, congestion, runny nose or sore throat. Respiratory: No shortness of breath, cough or sputum production. Cardiovascular: No chest pain, chest pressure or chest discomfort. No palpitations or pedal edema. Gastrointestinal: No anorexia, nausea, vomiting or diarrhea. No abdominal pain or blood in stool. Genitourinary: No dysuria, hematuria, urinary frequency. Neurologic: No headache, dizziness, syncope, unilateral weakness, ataxia, numbness or tingling in the extremities. Musculoskeletal: No muscle pain, back pain. Chronic bilateral knee pain. Hematologic/Lymphatics: No bleeding or bruising. No painful lymph nodes. Skin: No rash or itching. Endocrine: No cold or heat intolerance. No polyuria or polydipsia. Psychiatric: +Depressive symptoms discuss previously. Does not want additional medications or referrals. .Physical exam: Constitutional: Alert, in no distress. Head: Normocephalic. Eyes: Pupils are equal, round and reactive to light. Extraocular muscles intact. Ear, Nose and Throat: Canals clear. Right TM normal. There is a small perforation of the left tympanic membrane. No erythema or discharge. Normal nasal mucosa. No nasal discharge. No oral lesions. Neck: Supple, Full range of motion. No lymphadenopathy. No palpable thyroid masses. Respiratory: Clear to auscultation. Cardiovascular: S1 S2 regular. No murmurs. No carotid bruits. Gastrointestinal: Abdomen soft, non-tender, non-distended. Normal bowel sounds. No palpable masses. Neurologic: Patient is quiet but answers questions when asked. Moves all extremities spontaneously. Symmetric patellar reflexes. Ambulates without assistance. Skin: No rashes Musculoskeletal: No gross deformities. Normal range of motion. Extremities: Warm and well perfused. No clubbing, cyanosis or edema. Psychiatric: Normal mood and affect [facility] Medical History (Updated 12/04/24 @ 09:50 by RICO Severino) Perforated left tympanic membrane on examination Routine physical examination At risk for falling Alzheimer's dementia Cognitive decline Microhematuria Pure hypercholesterolemia Urinary frequency Abnormal mammogram of right breast Bilateral knee pain Memory loss Surgical History History of tubal ligation Family History (Updated 12/03/24 @ 11:01 by Millie Villasenor CMA) Brother Cancer Brother Cancer Sister Stroke Diabetes Social History (Updated 12/03/24 @ 11:01 by Millie Villasenor CMA) Housing: House Housing Other:: With son and his Alcohol intake: never Patient Tobacco Use Status: Never used Tobacco e-Cigarette/Vaping Use: Never Used Second Hand Smoke Exposure: No service: No Current occupational status: retired Cognitive needs: No Hearing needs: No Vision needs: Yes Questionnaire PHQ-9 Over the last 2 weeks, how often have you been bothered by any of the following problems? 1. Little interest or pleasure in doing things: nearly every day 2. Feeling down, depressed, or hopeless: several days 3. Trouble falling or staying asleep, or sleeping too much: nearly every day 4. Feeling tired or having little energy: nearly every day 5. Poor appetite or overeating: nearly every day 6. Feeling bad about yourself - or that you are a failure or have let yourself or your family down: several days 7. Trouble concentrating on things, such as reading the newspaper or watching television: several days 8. Moving or speaking so slowly that other people could have noticed. Or the opposite - being so fidgety or restless that you have been moving around a lot more than usual: several days 9. Thoughts that you would be better off or of hurting yourself in some way: not at all Total score: 16 Depression Screening Interpretation: Positive Depression Screening Follow-up: Other (Patient has dementia.) Depression Screening Done: Yes 11161 - PHQ-9 Billing: Yes Source: Developed by Drs. Willie An, Sloan Chamberlain and colleagues, with an educational ruddy from charity: water. Thrive Questionnaire Date Thrive assessed: 12/03/24 I am a: Patient What is your living situation today?: I have a steady place to live Within the past 12 months, did the food you bought not last and you didn't have the money to get more?: Never true Within the past 12 months, did you worry whether your food would run out before you got money to buy more?: Never true Do you have trouble paying for medicines?: I choose not to answer this question Do you have trouble getting transportation to medical appointments?: No Do you have trouble paying your heating and electricity bill?: No Do you have trouble taking care of your child, family member or friend?: No Do you have trouble with day-to-day activities such as bathing, preparing meals, shopping, managing finances, etc.?: Yes Are you currently unemployed and looking for a job?: No Are you interested in more education?: I choose not to answer this question Please select the resources that you would like help with: None Currently or been in a relationship where the following occur: I choose not to answer THRIVE Score: 0 AUDIT C Alcohol Use Questionnaire (AUDIT-C) 1. How often do you have a drink containing alcohol?: Monthly or less 2. How many drinks containing alcohol do you have on a typical day when you are drinking?: 1 or 2 3. How often do you have six or more drinks on one occasion?: Never Total Score: 1 FILIPPO-7 AMB Questionnaire FILIPPO-7 Date FILIPPO - 7 assessed: 12/03/24 Source: Developed by Drs. Willie An, Sloan Chamberlain and colleagues, with an educational ruddy from charity: water. Physical exam (Primary Care) Vital Signs: Last Vital Signs Temp 97.7 F 12/03/24 11:01 Pulse 62 12/03/24 11:01 Resp 12 12/03/24 11:01 BP 118/72 09/18/25 11:01 Pulse Ox 97 12/03/24 11:01 Oxygen Delivery Method Room Air 12/03/24 11:01 BMI result Body Mass Index 22.0 Tobacco/Smoking Status: Tobacco use Status Tobacco use date assessed 12/03/24 12/03/24 11:06 Patient Tobacco Use Status Never used Tobacco 12/03/24 11:01 e-Cigarette/Vaping Use Never Used 12/03/24 11:01 PHQ-9: PHQ-9 Score PHQ-9: Total score 16 12/03/24 11:15 Depression Screening Interpretation: Positive Depression Screening Follow-up: Other (Patient has dementia.) Thrive Assessment: Date of Thrive Assessment Date Thrive assessed 12/03/24 12/03/24 10:54 Currently or been in a relationship where the following occur: I choose not to answer Coding Level of Care Code Est Pt Prev Care >65y(94839) Diagnoses Routine physical examination Z00.00 Microhematuria R31.29 Moderate late onset Alzheimer's dementia with other behavioral disturbance G30.1; F02.B18 Alzheimer's disease onset: late onset Dementia severity: moderate Dementia behavioral or psychological symptom: with other behavioral disturbance Pure hypercholesterolemia E78.00 Additional Codes PHQ-9 - 67323 - PHQ-9 Billing: Yes ([id number]) Assessment & Plan Assessment & Plan (1) Routine physical examination: Code(s): Z00.00 - Encounter for general adult medical examination without abnormal findings Category: Medical (2) Microhematuria: Code(s): R31.29 - Other microscopic hematuria Category: Medical (3) Alzheimer's dementia: Code(s): G30.9 - Alzheimer's disease, unspecified; F02.80 - Dementia in other diseases classified elsewhere, unspecified severity, without behavioral disturbance, psychotic disturbance, mood disturbance, and anxiety Category: Medical Qualifiers: Alzheimer's disease onset: late onset Dementia severity: moderate Dementia behavioral or psychological symptom: with other behavioral disturbance Qualified Code(s): G30.1 - Alzheimer's disease with late onset; F02.B18 - Dementia in other diseases classified elsewhere, moderate, with other behavioral disturbance (4) Pure hypercholesterolemia: Code(s): E78.00 - Pure hypercholesterolemia, unspecified Category: Medical Plan Patient is seen today for a routine physical. As part of this visit we reviewed the following issues, which are considered and essential part of preventative health in this age group: - Breast Cancer screening - Annual Financial Administrator exam - Screening for colon cancer - Blood pressure screening - Cholesterol screening - Osteoporosis prevention including calcium/vitamin D intake, weight bearing exercise & smoking cessation - Nutritional and exercise counseling - Counseling of injury prevention including fire prevention, smoke alarms and seat belt usage - Screening for depression - Education about skin cancer - Recommendations about immunizations - Recommendation of an eye exam - Screening for substance abuse Orders: Orders MM screening mammo BI 02/12/25 Z12.31 - Encounter for screening mammogram for malignant neoplasm of breast Referrals Ophthalmology Referral Z01.00 - Encounter for examination of eyes and vision without abnormal findings Cologuard Test Z12.11 - Encounter for screening for malignant neoplasm of colon Urology Referral R31.29 - Other microscopic hematuria Patient Instructions: I recommend: influenza vaccine Shngrix vaccine pneumonia vaccine tetanus vaccine You can speak to the pharmacist about a COVID-19 vaccine as well.
[2024-12-03 11:01] VITALS: BP 118/72; PULSE 62; RESP 12; TEMP 36.5; O2SAT 97; BMI 22.0
== END 2024-12-03 11:41 | disposition home or self-care (01) ==
LOC: HO.HMCFM 10:49
PROVIDERS: PCP Physician Assistant Medical; Visit Provider Physician Assistant Medical
DX: Z00.00 Encounter for general adult medical examination without abnormal findings (principal); R31.29 Other microscopic hematuria; G30.1 Alzheimer's disease with late onset; F02.B18 Dementia in other diseases classified elsewhere, moderate, with other behavioral disturbance; E78.00 Pure hypercholesterolemia, unspecified

== ENCOUNTER → 2024-12-03 10:48 | Outpatient (BNVA) | payer OTHER, SELFPAY | PROVIDERS: PCP Physician Assistant Medical; Visit Provider Physician Assistant Medical | DX: Z00.00 Encounter for general adult medical examination without abnormal findings (principal); R31.29 Other microscopic hematuria; G30.1 Alzheimer's disease with late onset; F02.B18 Dementia in other diseases classified elsewhere, moderate, with other behavioral disturbance; E78.00 Pure hypercholesterolemia, unspecified; Z13.31 Encounter for screening for depression | CPT/HCPCS: 96127; 99397 ==

== ENCOUNTER 2025-03-04 14:35 | Outpatient (AMB) | payer OTHER, SELFPAY ==
--- NOTE | 2025-03-04 14:34 | MHC.OFFVIS ---
Vital Signs 03/04/25 14:35 Height 5 ft 2 in Weight 122 lb BMI 22.3 BP 102/64 Blood Pressure Location Rt brachial Position Sitting Pulse 60 Pulse Source Pulse Oximeter Pulse Oximetry (%) 97 Oxygen Delivery Method Room Air Intake Visit Reasons: 6m follow up Intake Note: Follow up Alzheimer's dementia Hearing Aid Consultant Required: Yes Hearing Aid Consultant Services: Hearing Aid Consultant Offered & Declined Hearing Aid Consultant Name: Son in law to interpret Accompanied by: son in law Allergies No Known Allergies Allergy (Verified 03/04/25 14:35) Medication List - Last Reconciled 03/04/25 by Cande Lester MD atorvastatin 20 mg PO BEDTIME cyanocobalamin (vitamin B-12) 500 mcg PO DAILY donepezil 10 mg PO DAILY Grab bar As directed melatonin 3 mg PO BEDTIME PRN memantine 7 mg PO DAILY memantine 21 mg PO DAILY memantine 14 mg PO DAILY memantine 28 mg PO DAILY miscellaneous medical supply as directed; multivitamin 1 tab PO DAILY quetiapine 25 mg PO BEDTIME HPI Comments Details: 74y/o speaking female comes for follow up of dementia she went to day program for few weeks but stopped going. her duaghter in law works from home and helps her she likes going to [employer]. Her behavior has been stable- occasional delusions she is travelling to [place] tomorrow for 2 weeks with her son. History from initial visit- .08/2024 she is accompanied by her son with whom she lives. she moved form [place] 6 mths ago . Her short term memory issues started 2 years ago and has slowly worsened. Now she is very anxious, repeats herself often, wanders at night, irritable and can become aggressive at times, she threatened to self harm- jump from window , delusional - believes that [employer] calls her to report stolen money , verbally abusive, paranoid that she loses things, misplaces and hides things , spends day watching TV. she needs supervision with ADLS. [facility] Medical History Perforated left tympanic membrane on examination Routine physical examination At risk for falling Alzheimer's dementia Cognitive decline Microhematuria Pure hypercholesterolemia Urinary frequency Abnormal mammogram of right breast Bilateral knee pain Memory loss Surgical History History of tubal ligation Family History Brother Cancer Brother Cancer Sister Stroke Diabetes Social History Housing: House Housing Other:: With son and his Alcohol intake: never Patient Tobacco Use Status: Never used Tobacco e-Cigarette/Vaping Use: Never Used Second Hand Smoke Exposure: No service: No Current occupational status: retired Cognitive needs: No Hearing needs: No Vision needs: Yes Physical Exam Vital Signs: Last Vital Signs Pulse 60 03/04/25 14:35 BP 102/64 03/04/25 14:35 Pulse Ox 97 03/04/25 14:35 Oxygen Delivery Method Room Air 03/04/25 14:35 BMI result Body Mass Index 22.3 Const General: healthy appearing, comfortable, alert and Physically active Nutritional Appearance: average body habitus Orientation/consciousness: oriented to person and oriented to place Eyes Pupils: Equal, round and reactive pupils present Neuro Other: she went to school upto 3 rd grade General: oriented to person, oriented to place, gait normal, tone normal, moves all extremities and no focal motor deficits Cranial nerves: Yes Equal, round and reactive pupils present, Yes Bilaterally intact EOM present, Yes Nystagmus not present, Yes Normal facial strength present, Yes Midline tongue present, Yes Symmetric palate elevation present and Yes Ability to bilaterally elevate shoulders present Cognition (Neuro): abnormal cognition Gait exam (Neuro): gait abnormal Motor exam (neuro): 5/5 motor strength present throughout and Normal motor muscle tone present throughout Assessment & Plan Assessment & Plan (1) Alzheimer's dementia: Code(s): G30.9 - Alzheimer's disease, unspecified; F02.80 - Dementia in other diseases classified elsewhere, unspecified severity, without behavioral disturbance, psychotic disturbance, mood disturbance, and anxiety Category: Medical Qualifiers: Alzheimer's disease onset: late onset Dementia severity: moderate Dementia behavioral or psychological symptom: with other behavioral disturbance Qualified Code(s): G30.1 - Alzheimer's disease with late onset; F02.B18 - Dementia in other diseases classified elsewhere, moderate, with other behavioral disturbance Plan I reviewed her MRI brain and labs Donepezil 10 mg qd and quetiapine 25 mg qhs Geripsych referral Family has contacted senior services - patient moved in with her son Orders: Orders Other Ref Test - [facility], [facility] Today F02.B18 - Dementia in other diseases classified elsewhere, moderate, with other behavioral disturbance, G30.1 - Alzheimer's disease with late onset Medications: New memantine 7 mg PO DAILY 30 ea 0RF memantine after 30 day course of 14 mg 21 mg PO DAILY 30 ea 0RF memantine after 30 day course of 7 mg 14 mg PO DAILY 30 ea 0RF memantine after 30 day course of 21mg 28 mg PO DAILY 30 ea 6RF Coding Level of Care Code Est Pt Level 4 (69876) Add On Problem Visit Only Diagnoses Moderate late onset Alzheimer's dementia with other behavioral disturbance G30.1; F02.B18 Alzheimer's disease onset: late onset Dementia severity: moderate Dementia behavioral or psychological symptom: with other behavioral disturbance
[2025-03-04 14:35] VITALS: BP 102/64; PULSE 60; O2SAT 97; BMI 22.3
== END 2025-03-04 15:01 | disposition home or self-care (01) ==
LOC: HO.HSMS 14:35
PROVIDERS: PCP Physician Assistant Medical; Visit Provider Psychiatry & Neurology Neurology
DX: G30.1 Alzheimer's disease with late onset (principal); F02.B18 Dementia in other diseases classified elsewhere, moderate, with other behavioral disturbance
CPT/HCPCS: 99214; G2211

== ENCOUNTER → 2025-03-04 14:35 | Outpatient (BNVA) | payer OTHER, SELFPAY | PROVIDERS: PCP Physician Assistant Medical; Visit Provider Psychiatry & Neurology Neurology | DX: G30.1 Alzheimer's disease with late onset (principal); F02.B18 Dementia in other diseases classified elsewhere, moderate, with other behavioral disturbance | CPT/HCPCS: 99212 ==